=== PATIENT | male | born 2000 | race Caucasian/White ===

== ENCOUNTER 2019-01-09 12:43 | Emergency (ER) | payer OTHER ==
[~2019-01-09] VITALS: Ht 200.7 cm; Wt 100.0 kg
[2019-01-09 12:53] VITALS: BP 152/97
== END 2019-01-09 16:12 | disposition home or self-care (01) ==
LOC: ER 15:15
DX: M94.0 Chondrocostal junction syndrome [Tietze] (principal); R03.0 Elevated blood-pressure reading, without diagnosis of hypertension; R00.1 Bradycardia, unspecified
CPT/HCPCS: 93005; 99283